=== PATIENT | male | born 1980 | race Caucasian/White ===

== ENCOUNTER 2022-04-04 09:13 | Emergency (ER) | payer OTHER ==
[~2022-04-04] VITALS: Ht 167.6 cm; Wt 61.4 kg
[2022-04-04 09:21] VITALS: BP 145/104
== END 2022-04-04 11:47 | disposition home or self-care (01) ==
LOC: EMS 09:20
DX: Z13.30 Encounter for screening examination for mental health and behavioral disorders, unspecified (principal); Z76.5 Malingerer [conscious simulation]; R11.10 Vomiting, unspecified; F17.210 Nicotine dependence, cigarettes, uncomplicated; F10.90 Alcohol use, unspecified, uncomplicated; F12.90 Cannabis use, unspecified, uncomplicated; F15.90 Other stimulant use, unspecified, uncomplicated; Z59.00 Homelessness unspecified
CPT/HCPCS: 99283